=== PATIENT | female | born 1995 | race Two or more races ===

== ENCOUNTER 2021-11-26 08:39 | Emergency (ER) | payer OTHER ==
[~2021-11-26] VITALS: Ht 152.4 cm; Wt 50.0 kg
[2021-11-26 09:09] LABS: COVID AG,FIA SOURCE NASOPHARYNGEAL
[2021-11-26] MEDS ORDERED: ACETAMINOPHEN 325 MG TABLET PO ONE (09:45)
[2021-11-26] MEDS ORDERED: DEXAMETHASONE SOD PHOS 4 MG/ML 5 ML VIAL IM ONE (11:00)
[2021-11-26 12:22] VITALS: BP 120/76
== END 2021-11-26 12:23 | disposition home or self-care (01) ==
LOC: EMS 08:39
DX: J02.9 Acute pharyngitis, unspecified (principal); Z20.822 Contact with and (suspected) exposure to COVID-19
CPT/HCPCS: 87426; 87430; 96372; 99283; J1100; U0003

== ENCOUNTER 2021-12-14 14:00 | Emergency (ER) | payer OTHER ==
[~2021-12-14] VITALS: Ht 152.4 cm; Wt 50.0 kg
[2021-12-14 17:21] LABS: COVID AG,FIA SOURCE NASOPHARYNGEAL
[2021-12-14 17:56] LABS: INFLUENZA TYPE A NEGATIVE FOR TYPE A (NEGATIVE); INFLUENZA TYPE B NEGATIVE FOR TYPE B (NEGATIVE)
[2021-12-14] MEDS ORDERED: ACETAMINOPHEN 325 MG TABLET PO ONE (18:00)
[2021-12-14 18:08] VITALS: BP 106/76
== END 2021-12-14 18:41 | disposition home or self-care (01) ==
LOC: EMS 14:28
DX: U07.1 COVID-19 (principal)
CPT/HCPCS: 71045; 87426; 87804; 99284; U0003